=== PATIENT | female | born 2000 | race Caucasian/White ===

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

== ENCOUNTER → 2020-05-01 | Outpatient (CLI) | payer OTHER ==
[~2020-05-01] MED LIST changes: +ADDERALL 20 MG20 MG PO; -ADDERALL20 MG PO; +ALBUTEROL S5 MG/1 ML INH; +CETIRIZINE HYDR10 MG PO; +CLONIDINE HCL0.2 MG PO; +MIXED AMPHETAMI30 MG PO; +OMEPRAZOLE MAGN20 MG PO; +SINGULAIR10 M1 PO; -SINGULAIR5 MG PO; +VITAMIN D3125 MC1 PO
== END | disposition home or self-care (01) ==
LOC: COVID19 16:17
PROVIDERS: ATTEND Dentist General Practice
DX: Z01.818 Encounter for other preprocedural examination (principal); Z20.822 Contact with and (suspected) exposure to COVID-19

== ENCOUNTER → 2020-07-24 | Outpatient (CLI) | payer OTHER | END | disposition home or self-care (01) | LOC: LAB 13:26 | PROVIDERS: ATTEND Dentist General Practice | DX: Z20.822 Contact with and (suspected) exposure to COVID-19 (principal); F41.9 Anxiety disorder, unspecified; K01.1 Impacted teeth ==

== ENCOUNTER → 2020-07-28 | Day surgery (SDC) | payer OTHER ==
[2020-04-30 14:40] VITALS: BP 140/96
[2020-07-24 14:47] VITALS: BP 136/86
[~2020-07-28] VITALS: Ht 157.4 cm; Wt 99.8 kg
[2020-07-28 11:06] VITALS: BP 111/67
[2020-07-28 13:05] VITALS: BP 122/68
[2020-07-28 13:20] VITALS: BP 129/75
[2020-07-28 13:35] VITALS: BP 119/70
[2020-07-28 13:50] VITALS: BP 102/60
[2020-07-28 14:05] VITALS: BP 103/65
== END ==
LOC: SDC 04-30 14:00
PROVIDERS: ATTEND Dentist General Practice
DX: K01.1 Impacted teeth (principal); F41.9 Anxiety disorder, unspecified; F90.9 Attention-deficit hyperactivity disorder, unspecified type; J45.909 Unspecified asthma, uncomplicated; K21.9 Gastro-esophageal reflux disease without esophagitis; Z79.899 Other long term (current) drug therapy

== ENCOUNTER → 2020-12-21 | Outpatient (CLI) | payer OTHER | END | disposition home or self-care (01) | LOC: COVID19 16:21 | PROVIDERS: ATTEND Internal Medicine | DX: Z11.52 Encounter for screening for COVID-19 (principal) ==

== ENCOUNTER → 2020-12-25 | Outpatient (CLI) | payer OTHER ==
[2020-12-25 17:43] LABS: BASO % 0.3 % (0.0-1.0); EOS # 0.1 10*3/uL (0.0-0.4); EOS % 0.6 % (1.0-4.0); HEMATOCRIT 39.9 % (37.0-47.0); LYMPH # 3.2 10*3/uL (1.3-4.4); LYMPH % 27.9 % (27.0-41.0); MEAN CELL VOLUME 89.3 fl (81.0-99.0); MEAN CORPUSCULAR HGB 29.8 pg (27.0-31.0); MEAN CORPUSCULAR HGB CONC 33.3 g/dl (33.0-37.0); MEAN PLATELET VOLUME 9.2 fl (9.6-12.3); MONO # 0.3 10*3/uL (0.1-1.0); MONO % 2.8 % (3.0-9.0); NEUT # 7.8 10*3/uL (2.3-7.9); NEUT % 68.1 % (47.0-73.0); PLATELET COUNT AUTOMATED 323 10*3/uL (130-400); RED BLOOD COUNT 4.47 10*6/uL (4.10-5.10); WHITE BLOOD COUNT 11.5 10*3/uL (4.8-10.8)
[2020-12-25 17:57] LABS: ALBUMIN 3.6 gm/dl (3.1-4.5); ALKALINE PHOSPHATASE 116 U/L (45-117); BUN 9 mg/dl (7-24); CHLORIDE 104 mmol/L (98-107); CHOLESTEROL 130 mg/dL (<200); CREATININE 0.78 mg/dL (0.55-1.02); LDL CHOLESTEROL 74 mg/dL (9-159); POTASSIUM 3.9 mmol/L (3.5-5.1); SGOT/AST 18 IU/L (3-35); SGPT/ALT 27 U/L (12-78); SODIUM 140 mmol/L (136-145); TOTAL PROTEIN 7.6 gm/dL (6.4-8.2); TRIGLYCERIDES 86 mg/dl (<150)
[2020-12-25 18:05] LABS: THYROID STIM HORMONE (HS) 0.653 uIU/ml (0.358-4.75)
== END | disposition home or self-care (01) ==
LOC: LAB 17:13
PROVIDERS: ATTEND Pediatrics
DX: D64.9 Anemia, unspecified (principal); J02.9 Acute pharyngitis, unspecified

== ENCOUNTER → 2021-10-06 | Outpatient (CLI) | payer OTHER ==
[2021-10-06 16:43] LABS: BASO % 0.3 % (0.0-1.0); EOS # 0.1 10*3/uL (0.0-0.4); EOS % 0.5 % (1.0-4.0); HEMATOCRIT 38.4 % (37.0-47.0); LYMPH # 2.8 10*3/uL (1.3-4.4); LYMPH % 25.1 % (27.0-41.0); MEAN CELL VOLUME 88.3 fl (81.0-99.0); MEAN CORPUSCULAR HGB 30.3 pg (27.0-31.0); MEAN CORPUSCULAR HGB CONC 34.4 g/dl (33.0-37.0); MEAN PLATELET VOLUME 8.9 fl (9.6-12.3); MONO # 0.5 10*3/uL (0.1-1.0); MONO % 4.4 % (3.0-9.0); NEUT # 7.8 10*3/uL (2.3-7.9); NEUT % 69.4 % (47.0-73.0); PLATELET COUNT AUTOMATED 297 10*3/uL (130-400); RED BLOOD COUNT 4.35 10*6/uL (4.10-5.10); RED CELL DISTRI WIDTH 13.2 % (0-14.5); WHITE BLOOD COUNT 11.2 10*3/uL (4.8-10.8)
[2021-10-06 17:02] LABS: ALKALINE PHOSPHATASE 88 U/L (45-117); BUN 13 mg/dl (7-24); CHLORIDE 109 mmol/L (98-107); CHOLESTEROL 152 mg/dL (<200); CREATININE 0.82 mg/dL (0.55-1.02); LDL CHOLESTEROL 95 mg/dL (9-159); POTASSIUM 3.8 mmol/L (3.5-5.1); SGOT/AST 21 IU/L (3-35); SGPT/ALT 31 U/L (12-78); SODIUM 142 mmol/L (136-145); T3 UPTAKE 35 % (31-39); TOTAL PROTEIN 7.6 gm/dL (6.4-8.2); TRIGLYCERIDES 108 mg/dl (<150)
[2021-10-06 17:07] LABS: THYROID STIM HORMONE (HS) 0.423 uIU/ml (0.358-4.75); THYROXINE (T4) TOTAL 9.9 ug/dl (4.8-13.9)
[2021-10-07 08:08] LABS: FOLLICLE STIMULATING HORMONE 8.2 mIU/mL (.); LUTEINIZING HORMONE 4.4 mIU/mL (.)
== END | disposition home or self-care (01) ==
LOC: LAB 16:18
PROVIDERS: ATTEND Pediatrics
DX: E55.9 Vitamin D deficiency, unspecified (principal); D64.9 Anemia, unspecified; R63.5 Abnormal weight gain

== ENCOUNTER → 2022-06-01 | Outpatient (CLI) | payer OTHER | END | disposition home or self-care (01) | LOC: LAB 16:32 | PROVIDERS: ATTEND Pediatrics | DX: N39.0 Urinary tract infection, site not specified (principal) ==

== ENCOUNTER → 2024-09-03 | Outpatient (CLI) | payer OTHER ==
[~2024-09-03] MED LIST changes: +IOHEXOL IV ONE; +STERILE IV ONE; +WATER IV ONE
== END | disposition home or self-care (01) ==
LOC: RAD 09:36
PROVIDERS: ATTEND Pediatrics
DX: N39.0 Urinary tract infection, site not specified (principal)